=== PATIENT | female | born 1930 ===

== ENCOUNTER 2018-02-12 09:15 | Outpatient (CLI) | payer OTHER ==
[~2018-02-12] VITALS: Ht 147.3 cm; Wt 47.2 kg
== END 2018-02-12 09:30 | disposition home or self-care (01) ==
LOC: OFIC 805 09:15
DX: H61.23 Impacted cerumen, bilateral (principal); H90.3 Sensorineural hearing loss, bilateral

== ENCOUNTER 2018-02-26 09:47 | Outpatient (CLI) | payer OTHER ==
[~2018-02-26] VITALS: Ht 121.9 cm; Wt 47.2 kg
== END 2018-02-26 10:10 | disposition home or self-care (01) ==
LOC: OFIC 805 09:47
DX: H61.21 Impacted cerumen, right ear (principal)

== ENCOUNTER 2019-03-14 13:56 | Outpatient (CLI) | payer OTHER | END 2019-03-14 14:10 | disposition home or self-care (01) | LOC: OFIC 805 13:56 | DX: H61.23 Impacted cerumen, bilateral (principal); H91.8X3 Other specified hearing loss, bilateral; R42 Dizziness and giddiness ==

== ENCOUNTER 2019-07-12 07:56 | Outpatient (CLI) | payer OTHER ==
[~2019-07-12] VITALS: Ht 121.9 cm; Wt 49.0 kg
== END 2019-07-12 11:23 | disposition home or self-care (01) ==
LOC: OFIC 805 07:56
DX: H91.8X3 Other specified hearing loss, bilateral (principal); R42 Dizziness and giddiness